=== PATIENT | female | born 1980 | race Asian ===

== ENCOUNTER 2018-01-15 16:05 | Inpatient (IN) | payer OTHER ==
[~2018-01-15] VITALS: Ht 160 cm; Wt 63.5 kg
[~2018-01-15 16:05] MED LIST: IBUP-2070 PO; PREN-27 PO
[2018-01-15] MEDS ORDERED: RINGERS SOLUTION,LACTATED 1,000 ML IV PRN (16:40)
[2018-01-15] MEDS ORDERED: OXYTOCIN 30 UNITS/LACT RINGERS 500 ML IV ONE (16:40)
[2018-01-15] MEDS ORDERED: RINGERS SOLUTION,LACTATED 1,000 ML IV ONE (16:41)
[2018-01-15 16:45] VITALS: BP 115/70
[2018-01-15] MEDS ORDERED: CITRIC ACID/SODIUM CITRATE 30 ML SOLUTION UDCUP PO PRN (16:45)
[2018-01-15] MEDS ORDERED: METOCLOPRAMIDE HCL 5 MG/ML 2 ML VIAL IVP PRN (16:45)
[2018-01-15] MEDS ORDERED: FentaNYL CITRATE-PF 100 MCG/2 ML VIAL IVP PRN (16:45)
[2018-01-15 17:11] LABS: BASOPHILS % (AUTO) 0.4 % (0.0-2.0); EOSINOPHILS % (AUTO) 2.1 % (1.0-6.0); HEMOGLOBIN 12.2 g/dL (12.0-16.0); LYMPHOCYTES # (AUTO) 1.1 K/uL (1.0-4.8); LYMPHOCYTES % (AUTO) 13.4 % (22.0-44.0); MEAN CORPUSCULAR HEMOGLOBIN 28.8 pg (26.0-34.0); MEAN CORPUSCULAR HGB CONC 32.9 G/dL (31.0-37.0); MEAN CORPUSCULAR VOLUME 87 fL (80-100); MONOCYTES # (AUTO) 0.7 K/uL (0.1-1.0); MONOCYTES % (AUTO) 8.6 % (2.0-9.0); NEUTROPHILS # (AUTO) 6.3 K/uL (1.8-7.7); NEUTROPHILS % (AUTO) 75.5 % (40.0-70.0); PLATELET COUNT (AUTO)-OB 274 K/uL (150-450); RED BLOOD CELL COUNT(AUTO) 4.24 MIL/uL (4.00-5.20); RED CELL DISTRIBUTION WIDTH 13.8 % (11.5-14.5)
[2018-01-15] MEDS ORDERED: BUPIVACAINE HCL/PF 0.25% 10 ML VIAL ONE (17:45)
[2018-01-15] MEDS ORDERED: LIDOCAINE HCL/PF 2% 5 ML VIAL ONE (17:45)
[2018-01-15] MEDS ORDERED: ROPIVACAINE HCL 0.2% 100 ML ED ONE (17:46)
[2018-01-15] MEDS: RINGERS SOLUTION,LACTATED 1,000 ML IV SCH ×2 (17:49→19:28)
[2018-01-15] MEDS ORDERED: INFLUENZA VIRUS VACCINE QVS 2017-18 (3YR+)/PF 60 MCG/0.5 ML SYRINGE IM ONE (18:15)
[2018-01-15] MEDS ORDERED: ROPIVACAINE HCL 0.2% 100 ML ED PRN (18:27)
[2018-01-15] MEDS ORDERED: NALBUPHINE HCL 10 MG/ML VIAL IVP PRN ×2 (18:30)
[2018-01-15] MEDS ORDERED: ONDANSETRON HCL 4 MG/2 ML VIAL IVP PRN (18:30)
[2018-01-15] MEDS ORDERED: DiphenhydrAMINE HCL 50 MG/ML VIAL IVP PRN (18:30)
[2018-01-15] MEDS ORDERED: OXYGEN THERAPY IH SCH (20:00)
[2018-01-16] MEDS ORDERED: ROPIVACAINE HCL 0.2% 100 ML ED ONE (01:17)
[2018-01-16] MEDS: RINGERS SOLUTION,LACTATED 1,000 ML IV SCH (02:31)
[2018-01-16] MEDS ORDERED: OXYTOCIN 20 UNITS/LACT RINGERS 1,000 ML IV SCH (05:26)
[2018-01-16] MEDS ORDERED: ACETAMINOPHEN/CODEINE 300-30 MG TABLET PO PRN (05:30)
[2018-01-16] MEDS ORDERED: GLYCERIN/WITCH HAZEL LEAF 40 PADS JAR TP PRN (05:30)
[2018-01-16] MEDS ORDERED: LANOLIN 7 GM OINTMENT TP PRN (05:30)
[2018-01-16] MEDS ORDERED: MEASLES/MUMPS/RUBELLA VACCINE, LIVE 0.5 ML/VIAL SQ ONE ×2 (05:30)
[2018-01-16] MEDS ORDERED: BENZOCAINE 20%/MENTHOL 56 GM SPRAY CANISTER TP PRN (05:30)
[2018-01-16] MEDS: SENNA/DOCUSATE SODIUM 187-50 MG TABLET PO PRN ×2 (09:23→21:25)
[2018-01-16] MEDS: MAGNESIUM HYDROXIDE SUSPENSION 30 ML UDCUP PO PRN (09:23)
[2018-01-16] MEDS: IBUPROFEN 600 MG TABLET PO PRN (15:59)
[2018-01-17] MEDS: IBUPROFEN 600 MG TABLET PO PRN (05:23)
[2018-01-17 06:53] LABS: BASOPHILS % (AUTO) 0.1 % (0.0-2.0); EOSINOPHILS % (AUTO) 1.6 % (1.0-6.0); HEMATOCRIT 33.3 % (36-46); LYMPHOCYTES # (AUTO) 1.4 K/uL (1.0-4.8); LYMPHOCYTES % (AUTO) 10.6 % (22.0-44.0); MEAN CORPUSCULAR HEMOGLOBIN 28.8 pg (26.0-34.0); MEAN CORPUSCULAR VOLUME 87 fL (80-100); MONOCYTES # (AUTO) 0.8 K/uL (0.1-1.0); MONOCYTES % (AUTO) 5.7 % (2.0-9.0); PLATELET COUNT (AUTO)-OB 242 K/uL (150-450); RED BLOOD CELL COUNT(AUTO) 3.82 MIL/uL (4.00-5.20)
[2018-01-17] MEDS: MAGNESIUM HYDROXIDE SUSPENSION 30 ML UDCUP PO PRN (08:28)
[2018-01-17] MEDS: SENNA/DOCUSATE SODIUM 187-50 MG TABLET PO PRN (08:29)
[2018-01-17] MEDS ORDERED: IBUP100O28 PO (09:07)
[2018-01-17] MEDS ORDERED: DSS100 PO (09:09)
[2018-01-17] MEDS ORDERED: FERR-82 PO (09:12)
== END 2018-01-17 14:15 | disposition home or self-care (01) | DRG 775 ==
LOC: OBSVTOIN 16:05 → 4S 16:05
PROVIDERS: ADMIT Obstetrics & Gynecology; ATTEND Obstetrics & Gynecology
PROC: 10E0XZZ Delivery of Products of Conception, External Approach (ICD-10-PCS; principal; 2018-01-16)
PROC: 0KQM0ZZ Repair Perineum Muscle, Open Approach (ICD-10-PCS; 2018-01-16)
PROC: 3E0R3BZ Introduction of Anesthetic Agent into Spinal Canal, Percutaneous Approach (ICD-10-PCS; 2018-01-16)
PROC: 00HU33Z Insertion of Infusion Device into Spinal Canal, Percutaneous Approach (ICD-10-PCS; 2018-01-16)
DX: O70.1 Second degree perineal laceration during delivery (principal); Z37.0 Single live birth; Z3A.39 39 weeks gestation of pregnancy
CPT/HCPCS: J2590; J2795; J3490; J7120